=== PATIENT | male | born 1960 | race Caucasian/White ===

== ENCOUNTER → 2023-07-12 08:29 | Outpatient (REF) | payer MEDICARE, OTHER, SELFPAY | LOC: MRI 3T 08:29 | PROVIDERS: ATTENDING PHYSICIAN Internal Medicine; FAMILY PHYSICIAN Family Medicine | DX: D3A.8 Other benign neuroendocrine tumors (principal) | CPT/HCPCS: 74183; A9575 ==

== ENCOUNTER → 2024-03-01 07:41 | Outpatient (REF) | payer MEDICARE, OTHER, SELFPAY | LOC: MRI 3T 07:41 | PROVIDERS: ATTENDING PHYSICIAN Surgery Surgical Oncology; FAMILY PHYSICIAN Nurse Practitioner Family | DX: D3A.8 Other benign neuroendocrine tumors (principal) | CPT/HCPCS: 74183; A9575 ==